=== PATIENT | male | born 1950 | race Caucasian/White ===

== ENCOUNTER → 2016-12-12 | Outpatient (CLI) | payer OTHER, MEDICARE ==
--- NOTE | 2016-12-12 16:18 | DX ---
Left wrist, 3 views History: Severe pain. Trauma in childhood. Findings: Severe radiocarpal joint space narrowing between the radius and scaphoid. Multiple cystic and sclerotic changes involving all the carpal bones, worst in the scaphoid, capitate, and hamate bon es. Severe joint space narrowing and sclerosis between the lunate and the capitate. Several fragments adjacent to the first carpometacarpal joint, trapezium, and between the first and second metacarpal bases with associated severe joint space narrowing, subchondral sclerosis, and osteophytes of the fir st carpometacarpal joint and trapezium. No definite acute fracture. Widened scapholunate joint. Impression: Severe multicompartment osteoarthritis involving the intercarpal joints, radiocarpal dayana nt, and first carpometacarpal joint with sequela of old trauma. Findings and recommendations discussed with Dr. Myron Jiménez, at 1600 hours, on December 12, 2016. Final report concurs with initial preliminary interpretation.
--- NOTE | 2016-12-12 16:20 | DX ---
Left first finger, 3 views History: Severe pain. Trauma in childhood. Findings: Severe radiocarpal joint space narrowing between the radius and scaphoid. Possible cystic a nd sclerotic changes involving all the carpal bones, worst in the scaphoid, capitate, and hamate bone s. Severe joint space narrowing and sclerosis between the lunate and the capitate. Several fragments adjacent to the first carpometacarpal joint, trapezium, and between first and second metacarpal bases with associated severe joint space narrowing, subchondral sclerosis, and osteophytes of the first ca rpometacarpal joint and trapezium. No definite acute fracture. Left thumb demonstrates no evidence of acute fracture. Mild subchondral sclerosis involving the thumb interphalangeal joint and first metac arpophalangeal joint. However, severe osteoarthritis first carpometacarpal joint. Impression: 1. Severe osteoarthritis left first carpometacarpal joint. 2. Severe osteoarthritis intercarpal joints and radiocarpal joint.
== END ==
LOC: BMCIMAGING 11:14
PROVIDERS: ATTEND Internal Medicine
DX: M18.12 Unilateral primary osteoarthritis of first carpometacarpal joint, left hand (principal); M19.042 Primary osteoarthritis, left hand

== ENCOUNTER → 2016-12-15 | Outpatient (CLI) | payer OTHER, MEDICARE | LOC: BMCIMAGING 15:10 | PROVIDERS: ATTEND Internal Medicine | DX: R91.8 Other nonspecific abnormal finding of lung field (principal); R05 Cough; J06.9 Acute upper respiratory infection, unspecified; B97.89 Other viral agents as the cause of diseases classified elsewhere; Z78.9 Other specified health status | CPT/HCPCS: G0463-PO ==

== ENCOUNTER 2017-09-14 10:28 | Observation (INO) | payer OTHER, MEDICARE ==
--- NOTE | 2017-09-14 10:45 | CPEKG ---
Heart Rate: 64 RR Interval: 938 P-R Interval: 196 QRSD Interval: 88 QT Interval: 416 QTC Interval: 430 P [place]: -25 QRS [place]: 68 T Wave [place]: 53 EKG Severity - ABNORMAL ECG - EKG Impression: SINUS RHYTHM EKG Impression: ST ELEVATION SUGGESTS PERICARDITIS Electronically Signed By: Gordon Bee 14-Sep-2017 10:52:12
[2017-09-14] MEDS ORDERED: NITROGLYCERIN 0.4 MG BTL SL PRN (11:01)
[2017-09-14] MEDS ORDERED: NS 500 ML IV ONE (11:01)
[2017-09-14] MEDS ORDERED: NITROGLYCERIN 0.4 MG BTL SL ONE (11:01)
--- NOTE | 2017-09-14 11:04 | EDPHY ---
H & P Stated Complaint: midsternl CP starting at 7:20 this am, R jaw pain episode at 10:00 Time Seen by Provider: 09/14/17 10:49 HPI/ROS: CHIEF COMPLAINT: Chest pain radiating to jaw HISTORY OF PRESENT ILLNESS: Patient is a 66-year-old otherwise healthy man who comes to the emergency department complaining of chest pain that began at 7:30 a.m. this morning and radiates to his jaw. It initially was and 9. It is now decreased to a 2. He denies shortness of breath. No nausea vomiting or diaphoresis. No cardiac history. He did take his normal an acids without relief. He also took some of his mom's leftover nitroglycerin with moderate improvement. REVIEW OF SYSTEMS: Constitutional: denies: chills, fever, recent illness, recent injury EENTM: denies: blurred vision, double vision, nose congestion Respiratory: denies: cough, shortness of breath Cardiac: See HPI Gastrointestinal/Abdominal: denies: abdominal pain, diarrhea, nausea, vomiting, blood streaked stools Genitourinary: denies: dysuria, frequency, hematuria, pain Musculoskeletal: denies: joint pain, muscle pain Skin: denies: lesions, rash, jaundice, bruising Neurological: denies: headache, numbness, paresthesia, tingling, dizziness, weakness Hematologic/Lymphatic: denies: blood clots, easy bleeding, easy bruising Immunologic/allergic: denies: HIV/AIDS, transplant EXAM: GENERAL: Well-appearing, well-nourished and in no acute distress. HEAD: Atraumatic, normocephalic. EYES: Pupils equal round and reactive to light, extraocular movements intact, sclera anicteric, conjunctiva are normal. ENT: TMs normal, nares patent, oropharynx clear without exudates. Moist mucous membranes. NECK: Normal range of motion, supple without lymphadenopathy or JVD. LUNGS: Breath sounds clear to auscultation bilaterally and equal. No wheezes rales or rhonchi. HEART: Regular rate and rhythm without murmurs, rubs or gallops. ABDOMEN: Soft, nontender, normoactive bowel sounds. No guarding, no rebound. No masses appreciated. BACK: No CVA tenderness, no spinal tenderness, step-offs or deformities EXTREMITIES: Normal range of motion, no pitting or edema. No clubbing or cyanosis. NEUROLOGICAL: Cranial nerves II through XII grossly intact. Normal speech, normal gait. 5/5 strength, normal movement in all extremities, normal sensation PSYCH: Normal mood, normal affect. SKIN: Warm, dry, normal turgor, no visible rashes or lesions. Source: Patient Exam Limitations: No limitations - Personal History Current Tetanus/Diphtheria Vaccine: Unsure Current Tetanus Diphtheria and Acellular Pertussis (TDAP): Unsure - Medical/Surgical History Hx Asthma: No Hx Chronic Respiratory Disease: No Hx Diabetes: No Hx Cardiac Disease: No Hx Renal Disease: No Hx Cirrhosis: No Hx Alcoholism: No Hx HIV/AIDS: No Hx Splenectomy or Spleen Trauma: No Other PMH: Hypertrophy, chronic urinary tract infection - Family History Significant Family History: No pertinent family hx - Social History Smoking Status: Never smoked Alcohol Use: Sober Drug Use: None Constitutional: Initial Vital Signs Temperature (C) 37.0 C 09/14/17 10:33 Heart Rate 68 09/14/17 10:33 Respiratory Rate 16 09/14/17 10:33 Blood Pressure 138/78 H 09/14/17 10:33 O2 Sat (%) 98 09/14/17 10:33 O2 Delivery Mode Nasal Cannula O2 (L/minute) 2 Allergies/Adverse Reactions: No Known Allergies Allergy (Unverified 09/14/17 10:32) Home Medications: Medication Instructions Recorded C/E/Zn/Cu/OM3/DHA/EPA/LUT/ZEAX 1 each PO BID 09/14/17 [Preservision Areds 2 Softgel] Finasteride [Proscar 5 MG (*)] 5 mg PO DAILY 09/14/17 Herbals/Supplements -Info Only 1 ea PO DAILY 09/14/17 Naproxen Sodium [Aleve 220 MG (*)] 220 mg PO DAILY 09/14/17 Pantoprazole Sodium [Protonix 40mg 40 mg PO DAILY #30 tab 09/14/17 (*)] Medical Decision Making - Diagnostics EKG Interpretation: An EKG obtained and was read and documented in trace view. Please see trace view for full reading and report. Sinus rhythm with ST elevation in anterior leads, possibly consistent with early report, no reciprocal changes A repeat EKG obtained and was read and documented in trace view. Please see trace view for full reading and report. Sinus rhythm with ST elevation anteriorly, no reciprocal changes, unchanged from previous ED Course/Re-evaluation: On my evaluation I called a cardiac alert. The patient's EKG is consistent with pericarditis however he does not have any recent infectious tree than his chronic UTI. Dr. Marcel martinez evaluated the patient emergently. Echocardiogram is normal. He recommends admission to the hospital service for following enzymes 11:40 a.m. the patient lab work is reassuring. Will admit to the hospital service. Differential Diagnosis: Partial list of the Differential diagnosis considered include but were not limited to; chest pain, pericarditis, GERD and although unlikely based on the history and physical exam, I also considered pneumonia, PE, pneumothorax. - Data Points Laboratory Results: Laboratory Results 09/14/17 10:40 09/14/17 10:40 Medications Given: Discontinued Medications Aspirin (Aspirin) 324 mg PO EDNOW ONE Stop: 09/14/17 11:15 Last Admin: 09/14/17 12:06 Dose: 324 mg Sodium Chloride (Ns) 500 mls @ 1,000 mls/hr IV EDNOW ONE PRN Reason: Protocol Stop: 09/14/17 11:30 Last Admin: 09/14/17 12:07 Dose: 500 mls Nitroglycerin (Nitrostat) 0.4 mg SL Q5M PRN PRN Reason: Chest Pain Last Admin: 09/14/17 11:05 Dose: 0.4 mg Pantoprazole Sodium (Protonix) 40 mg PO DAILY [facility] Stop: 03/13/18 15:59 Last Admin: 09/14/17 16:02 Dose: 40 mg Departure - Departure Disposition: [facility] Inpatient Acute Clinical Impression: Chest pain Qualifiers: Chest pain type: unspecified Qualified Code(s): R07.9 - Chest pain, unspecified Condition: Fair
[2017-09-14 11:06] LABS: % IMMATURE GRANULYOCYTES 0.3 % (0.0-1.1); ABSOLUTE IMMATURE GRANULOCYTES 0.03 10^3/uL (0.00-0.10); ADD DIFF? NO; ADD MORPH? NO; ADD SCAN? NO; ATYPICAL LYMPHOCYTE FLAG 10 (0-99); FRAGMENT RBC FLAG 0 (0-99); HEMOGLOBIN 16.4 g/dL (13.7-17.5); LEFT SHIFT FLG 0 (0-99); LIPEMIA HEMOLYSIS FLAG 90 (0-99); MEAN CELL HEMOGLOBIN 30.3 pg (27.9-34.1); MEAN CELL HEMOGLOBIN CONCENTR. 34.2 g/dL (32.4-36.7); MEAN CELL VOLUME 88.7 fL (81.5-99.8); MEAN PLATELET VOLUME 8.1 fL (8.7-11.7); PLATELET CLUMPS FLAG 0 (0-99); PLATELET COUNT 232 10^3/uL (150-400); RED BLOOD CELL COUNT 5.41 10^6/uL (4.40-6.38); RED CELL DISTRIBUTION WIDTH 12.9 % (11.5-15.2)
[2017-09-14] MEDS ORDERED: ASPIRIN 81 MG CHEWABLE TAB ONE (11:08)
[2017-09-14 11:13] LABS: ANION GAP 12 mEq/L (8-16); CARBON DIOXIDE 27 mEq/l (22-31); CHLORIDE 101 mEq/L (97-110); CREATININE 0.8 mg/dL (0.7-1.3); GLOMERULAR FILTRATION RATE > 60; GLUCOSE 87 mg/dL (70-100); INR 1.02 (0.83-1.16); POTASSIUM 5.1 mEq/L (3.5-5.2); PROTIME(PATIENT) 13.3 SEC (12.0-15.0); SODIUM 140 mEq/L (134-144)
[2017-09-14 11:14] LABS: APTT 26.6 SEC (23.0-38.0)
[2017-09-14] MEDS ORDERED: ASPIRIN 81 MG CHEWABLE TAB PO ONE (11:14)
[2017-09-14 11:24] LABS: TROPONIN I < 0.012 ng/mL (0.000-0.034)
--- NOTE | 2017-09-14 12:14 | CPEKG ---
Heart Rate: 52 RR Interval: 1154 P-R Interval: 200 QRSD Interval: 92 QT Interval: 452 QTC Interval: 421 P [place]: -20 QRS [place]: 65 T Wave [place]: 53 EKG Severity - OTHERWISE NORMAL ECG - EKG Impression: SINUS RHYTHM EKG Impression: MINIMAL ST ELEVATION, ANTERIOR LEADS Electronically Signed By: Gordon Bee 14-Sep-2017 12:19:41
[2017-09-14] MEDS ORDERED: ACETAMINOPHEN 325 MG TAB PO PRN (14:07)
[2017-09-14] MEDS ORDERED: ONDANSETRON DISINTEGRATING 4 MG TAB PO PRN (14:07)
[2017-09-14] MEDS ORDERED: ONDANSETRON 4 MG/2 ML VIAL IVP PRN (14:07)
--- NOTE | 2017-09-14 15:07 | GHP ---
[f rep st] HISTORY AND PHYSICAL DATE OF ADMISSION: 09/14/2017 CHIEF COMPLAINT: Midsternal chest pain. HISTORY OF PRESENT ILLNESS: The patient is a delightful 66-year-old male with a history of GERD, who presented to the emergency department complaining of chest pain that started at 7:20 this morning. He describes it being in the middle of his chest, and initially thought it was heartburn. He noted that the only difference from his regular heartburn is that it radiates to his right jaw and teeth area. He drank some water and then did a trial of milk with no relief. He then took 4 Rolaids. The pain did not go away. He also took 2 nitroglycerin at home with no change. He had no diaphoresis, no shortness of breath. He started to feel better. He went for a walk with his . Then he returned home and still felt that the pain was ongoing, but instead of being at a level of 7 like it was earlier this morning, it was at 4. During my interview , he is having no further pain. He has no pain with inspiration. Overall, he is feeling back to his baseline. PAST MEDICAL HISTORY: 1. BPH, to get GreenLight prostate surgery with Dr. Mcconnell. 2. GERD. 3. Chronic bronchitis. 4. Three shoulder replacements. 5. Hip replacement last year. 6. Tonsillectomy. SOCIAL HISTORY: He does not smoke. He occasionally drinks alcohol. He has been to his for 7 years. They have joint children together. He has 4 grandchildren. He is retired. 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 FAMILY HISTORY: His father had Alzheimer's as well as heart disease. He from complications of a stroke at age 90. His mom lived to be to be age 102. She had aortic stenosis. ALLERGIES: Visceral sutures. HOME MEDICATIONS: Naproxen 220 mg daily, herbal supplements 1 tab daily, Proscar 5 mg daily, PreserVision gels 1 tab b.i.d. REVIEW OF SYSTEMS: A 10-point review of system was performed, was negative other than pertinent positives in the HPI and past medical history. PHYSICAL EXAM: GENERAL: The patient is a 66-year-old male who appears to be in excellent health. VITAL SIGNS: Blood pressure is 112/68, heart rate 62, respiratory rate 16, O2 sats on room air 97%, temperature is 36.6 Celsius. EYES : Pupils are equal reactive. EOMs are intact. ENT: Normal ears. Hearing intact. Normal lips. Normal teeth. Oral airway is moist. NECK: Trachea is midline. CARDIOVASCULAR: He has a regular rate and rhythm. No murmurs, rubs, gallops noted. CHEST/LUNGS: Normal respiratory effort. Clear without wheezing , rales, rhonchi. ABDOMEN: Soft, nontender. SKIN: No rashes, ulcer. MUSCULOSKELETAL: Normal gait. Equal upper and lower extremity strength. PSYCHIATRIC: He is alert and oriented. Normal mood and affect. Normal judgment and insight and normal memory. DATA: Reviewed. Sodium is 140, potassium 5.1, chloride of 101, BUN 22, creatinine 0.8. Troponin is less than 0.12. Pro time is 13.3, INR of 1.02, PTT is 26.6. CBC shows a white blood cell count of 8.75, hemoglobin 16.4, hematocrit 48, platelet count of 232. Echocardiogram is pending. EKG showed some sinus rhythm with some minimal ST elevation in the anterior leads. I reviewed his care with Dr. Marcel Martinez with Cardiology. ASSESSMENT/PLAN: 1. Chest pain. His symptoms sound more like his gastroesophageal reflux disease symptoms except for the radiation to his jaw area. Reviewed his care with Dr. Marcel Martinez with Cardiology. Recommendation is to do another troponin. If this is negative, he can go home and make an appointment with Dr. Martinez and get an outpatient stress test. 2. Gastroesophageal reflux disease. Will encourage him to take a proton pump inhibitor. This may help with his symptoms. 3. Benign prostatic hypertrophy, to get surgery this next year with Dr. Mcconnell. 4. Deep venous thrombosis prophylaxis. Low risk. 5. Length of stay: He will likely require less than a 2-midnight stay, which will make him observation status. /[id number]/MODL MTDD
[2017-09-14 15:23] VITALS: BP 127/73; PULSE 69; RESP 17; TEMP 99; O2SAT 96
[2017-09-14] MEDS ORDERED: PANTOPRAZOLE SODIUM 40 MG TAB PO SCH (16:00)
--- NOTE | 2017-09-14 17:53 | GDS ---
[f rep st] DISCHARGE SUMMARY DISCHARGE DIAGNOSES: Include: 1. Chest pain. 2. Benign prostatic hypertrophy. 3. Gastroesophageal reflux disease. 4. History of chronic bronchitis. 5. History of 3 shoulder replacements. 6. History of hip replacement. 7. Tonsillectomy. 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 For details of patient's initia l presentation, please see the History and Physical dated 09/14/2017. CONSULTATIVE SERVICES: Include Cardiology. PROCEDURES: None. HOSPITAL COURSE BY ISSUE: 1. Chest pain. Patient had several characteristics most consistent with possible reflux; however, d id have pain that radiated to his jaw. He was ruled out with serial troponins and EKGs. Case was re viewed with Cardiology and the patient was felt safe for disposition with fast outpatient followup fo r treadmill testing. Patient has been scheduled on 09/19/2017, for outpatient stress testing. We re commend the patient continue a daily dose of pantoprazole until seen by Cardiology to discuss whether it affected or improved his symptoms post disposition. 2. BPH. Patient is planning on GreenLight prostate surgery with Dr. Mcconnell. 3. Chronic bronchitis. The patient does not have active symptoms during this hospital stay. A ches t x-ray obtained showed no acute intrapulmonary findings. MEDICATIONS AT THE TIME OF DISPOSITION: Please reference the medication reconciliation printed on . FOLLOWUP APPOINTMENTS: Include with Dr. Martinez at [facility] for stress testing on 09/19/2017. PENDING STUDIES: At the time of this dictation, are none. /[id number]/MODL
--- NOTE | 2017-09-14 19:19 | GCON ---
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 HISTORY OF PRESENT ILLNESS: Mr. Norris is a 66-year-old male who at his baseline is very healthy , seen in consultation in the emergency department. He has no known cardiovascular disease. His car diac risk factor profile includes only his age and gender. At his baseline, he has no symptoms of dy spnea or chest discomfort. He states he does have a history of gastroesophageal reflux disease and h as had esophageal spasm in the past. He was awakened this morning at about 7:30 with abrupt onset of epigastric and retro-xiphoidal chest pain. This was described as a squeezing sensation 9/10 in intensity. His was with him at the [facility]. She states that he appeared to be uncomfortable. He had no symptoms of shortness of breath, na usea, vomiting or diaphoresis. He drank water, a little bit of milk and tried to eat a small breakfa st. These provided very little relief. He and his subsequently went for a short walk. Because of the absence of improvement in his chest discomfort, he came to the emergency department here. On arrival, he was normotensive with a blood pressure 138/78 and resting heart rate in the 60s with tom m air saturations of 98%. His initial EKG demonstrated normal sinus rhythm with J-point elevation in the anterolateral leads and concave upward ST elevations. As a result, a cardiac alert was called. On arrival, he was taking sublingual nitroglycerin. In talking to him, his pain has now nearly comp letely resolved. We did a bedside echocardiogram, which demonstrated homogeneous contractility of al l cardiac segments with no pericardial effusion. His initial troponin returned at 0.012. PAST MEDICAL HISTORY: He states he has a history of gastroesophageal reflux disease with previous es ophageal spasm. He has history of previous left femur fracture and osteoarthritis. HOME MEDICATIONS: He takes occasional Aleve as his only medication. SURGICAL HISTORY: He has had 7 total shoulder surgeries in the past. Additionally, he has had a lef t total hip arthroplasty and previous repair of his left femur fracture. FAMILY HISTORY: Negative for premature atherosclerosis. SOCIAL HISTORY: He is and accompanied by his . Between the 2 of them they have 4 childr en. He is a lifelong nonsmoker. Uses alcohol only socially and exercises vigorously and regularly w ith no limiting symptoms. CURRENT MEDICATIONS: As described above. REVIEW OF SYSTEMS: A full 10-point review of systems was performed and was otherwise negative. DISCHARGE PHYSICAL EXAMINATION: VITAL SIGNS: Blood pressure when I examined him was 126/76 with a m stefano of 92, resting heart rate of 58, and room air saturations of 96%. He has been afebrile since adm ission. GENERAL: Healthy white male, in no acute distress. HEENT: Normocephalic, atraumatic. He cobb s anicteric sclerae. Oropharynx unremarkable. Carotids 2+ bilaterally with no bruits. No jugular v enous distention or thyromegaly is noted. RESPIRATORY: He is breathing easily, using no accessory mu scles on auscultation. He has clear lung ramires bilaterally. CARDIAC: Precordial inspection is unre markable. He has no reproducible chest wall tenderness on auscultation. He has a regular rate and r hythm without murmurs, gallops, or rubs. ABDOMEN: Soft and nontender. He has normoactive bowel amrit nds with no masses or hepatosplenomegaly. EXTREMITIES: Warm and well perfused with no lower extremit y edema. VASCULATURE: He has 2+ radial and dorsal pedal pulses. He has a nonpalpable abdominal aor ta. NEUROLOGIC: He is alert and oriented x3. DATABASE: Electrocardiogram demonstrates sinus bradycardia at 52 beats per minute with appropriate R -wave transition. He has J-point elevation and minor ST elevation, which is concave upward in appear ance. There are no reciprocal changes noted. His chest x-ray demonstrated findings consistent with COPD, was otherwise unremarkable. CBC is normal. INR is 1.02. Basic metabolic panel normal. Tropo raven less than 0.012. IMPRESSION: Mr. Norris is 66 years old with no significant cardiovascular history and a benign c ardiac risk factor profile, who presents to the emergency department with the abrupt onset of epigast marti and retro-xiphoidal chest discomfort, which began about 7:30 this morning. With his symptoms of chest discomfort, he had no symptoms of shortness of breath, nausea, vomiting or diaphoresis. He has a history of GERD and previous esophageal spasm. At this point, his chest discomfort is nearly comp letely resolved. His ECG is really not consistent with myocardial injury. We did a bedside echocard iogram, which demonstrated no segmental wall motion abnormalities. His initial troponin is negative. Overall, I think his chest discomfort is likely gastrointestinal related. It does not appear that he has an infectious process, aortic dissection or pulmonary embolism and certainly there is no indic ation at the present time of acute coronary syndrome/infarction. RECOMMENDATIONS: 1. I think he should be admitted to the observation unit. 2. We can cycle his troponins over the next 8 hours. 3. Provided his troponins are negative and he remained symptom free, I think he may be discharged ho me with an expedited outpatient noninvasive workup. /[id number]/MODL
[2017-09-15] MEDS ORDERED: Herbals/Supplements -Info Only PO SCH (09:00)
[2017-09-15] MEDS ORDERED: FINASTERIDE 5 MG TAB PO SCH (09:00)
--- NOTE | 2017-09-15 09:53 | ASDISCHSUM ---
Discharge Information Plan Status:Home with No Needs Medically Cleared to Leave:09/13/2017 Discharge Date:09/14/2017 07:14 PM CM D/C Disposition: ADT D/C Disposition:Home, Routine, Self-Care Projected Discharge Date:09/14/2017 12:00 AM Transportation at D/C: Discharge Delay Reason: Follow-Up Date:09/14/2017 12:00 AM Discharge Slot: Final Diagnosis: Placement Information Patient Contact Information Contact Name:COLLIN Relationship: Address:[address] Work Phone: [facility]:[employer] Alternate Phone: [facility]/Zip Code:[place] [address] Email: Financial Information Financial Class: Primary Plan Desc:MEDICARE OUTPATIENT Primary Plan Number:[id number] Secondary Plan Desc:[employer]/MDR SUPPLEMENT Secondary Plan Number:[id number] Assessment Information LACE LACE Acuity / Level of Care Answers: Was the patient admitted to hospital via the emergency department? Yes: Emergency dept visits in Answers: 1 last 6 months Score: 4 Date Signed: 09/14/2017 12:24 PM Electronically Signed By:Shantal Santo RN Intervention Information
== END 2017-09-14 19:14 | disposition home or self-care (01) ==
LOC: F2W 13:02
PROVIDERS: ADMIT Internal Medicine; ATTEND Internal Medicine
DX: R07.9 Chest pain, unspecified (principal); N40.0 Benign prostatic hyperplasia without lower urinary tract symptoms; K21.9 Gastro-esophageal reflux disease without esophagitis; Z96.619 Presence of unspecified artificial shoulder joint; Z96.649 Presence of unspecified artificial hip joint
CPT/HCPCS: 71020; 93005; 93306; G0378

== ENCOUNTER → 2017-09-19 | Outpatient (CLI) | payer OTHER, MEDICARE | LOC: BHFA 13:30 | PROVIDERS: ATTEND Internal Medicine Cardiovascular Disease | DX: R07.9 Chest pain, unspecified (principal) ==